=== PATIENT | female | born 1990 | race African-American/Black ===

== ENCOUNTER 2018-03-18 22:05 | Emergency (ER) | payer MEDICAID, OTHER ==
[~2018-03-18] VITALS: Ht 160 cm; Wt 47.6 kg
[2018-03-18 22:56] VITALS: BP 107/69
== END 2018-03-19 03:29 | disposition left against medical advice (07) ==
LOC: ER 22:24
DX: R07.89 Other chest pain (principal); M54.2 Cervicalgia; M79.602 Pain in left arm; Z53.21 Procedure and treatment not carried out due to patient leaving prior to being seen by health care provider; V43.52XA Car driver injured in collision with other type car in traffic accident, initial encounter; Y93.89 Activity, other specified; Y99.8 Other external cause status; Y92.410 Unspecified street and highway as the place of occurrence of the external cause
CPT/HCPCS: 73560; 73590